=== PATIENT | female | born 1955 | race Caucasian/White ===

== ENCOUNTER → 2020-06-17 09:34 | Outpatient (CLI) | payer MEDICARE, OTHER, SELFPAY ==
--- NOTE | ~2020-06-17 | MM_ITS ---
EXAMINATION: MM screening [facility] BI w kevin HISTORY: Screening mammogram TECHNIQUE: Craniocaudal and mediolateral oblique 3-D tomosynthesis images were obtained and synthetic 2-D images were generated. CAD analysis was submitted and interpreted. COMPARISON: Comparison to multiple prior studies sequentially, with oldest reviewed study dated 01/14. BREAST PARENCHYMAL COMPOSITION: There are scattered areas of fibroglandular density. FINDINGS: There is no evidence of suspicious mass, calcification, or architectural distortion to sugg est malignancy in either breast. There has been no suspicious interval change. IMPRESSION: 1. No mammographic evidence of malignancy. 2. Recommend routine screening mammography in one year. BI-RADS Category 1: Negative Reviewed, dictated and finalized at location A.
== END ==
PROVIDERS: PCP Physician Assistant; Visit Provider Physician Assistant
DX: Z12.31 Encounter for screening mammogram for malignant neoplasm of breast (principal)
CPT/HCPCS: 77063; 77067

== ENCOUNTER → 2022-01-12 11:08 | Outpatient (CLI) | payer MEDICARE, OTHER, SELFPAY ==
--- NOTE | ~2022-01-12 | XR_ITS ---
EXAMINATION: XR lumbar spine 2-3V DATE: 01/12/2022 11:55 INDICATION: Low back pain TECHNIQUE: Anteroposterior and lateral views of the lumbar spine, and cone-down lateral view of the l umbosacral junction were obtained. COMPARISON: None. FINDINGS: There are 9 degrees of lumbar levocurvature. There are 2 mm of anterolisthesis of L3 on L4. Bone alignment is otherwise normal. The vertebral body heights are maintained. There is no fracture. There is moderate to severe loss of intervertebral disc space height at L4-5 and L5-S1 and mild loss of intervertebral disc space height throughout the remainder of the lumbar spine. Small degenerative osteophytes project from the anterior endplates of multiple vertebral bodies. There is moderate face t osteoarthritis of the lower lumbar spine. The bowel gas pattern is normal. IMPRESSION: 1. Moderate lumbar spondylosis without acute findings. Reviewed, dictated and finalized at location A. [employer]NAGER
== END ==
PROVIDERS: PCP Physician Assistant; Visit Provider Physician Assistant
DX: M54.50 Low back pain, unspecified (principal); M47.816 Spondylosis without myelopathy or radiculopathy, lumbar region
CPT/HCPCS: 72100

== ENCOUNTER → 2022-01-14 10:27 | Outpatient (CLI) | payer MEDICARE, OTHER, SELFPAY ==
--- NOTE | ~2022-01-14 | MR_ITS ---
EXAMINATION: MR lumbar spine wo con DATE: 01/14/2022 11:04 INDICATION: Lumbar spondylosis TECHNIQUE: Magnetic resonance imaging (MRI) of the lumbar spine was performed without intravenous con trast. Sequences included sagittal T2-weighted FSE, sagittal T2-weighted FS FSE, sagittal T1-weighted FSE, and axial T2-weighted FSE. COMPARISON: Radiograph dated 01/12/2022 FINDINGS: 10 degrees lumbar levoscoliosis. 2 mm anterolisthesis L3 on L4. Minimal likely physiologic anterior w edging at T11. Small Schmorl's node along the superior endplate of L2. Remaining vertebral body heigh ts are normal. T1 and T2 hyperintense hemangioma at T12. Marrow signal is otherwise normal. Moderate to severe disc height loss at L4-L5 and to 5 S1. Moderate right-sided predominant disc height loss at L3-L4 and L4-L5. The conus medullaris terminates at T12-L1. There is normal signal in the caudal spi nal cord. 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 Paravertebral soft tissue s are unremarkable. The following disc levels are specifically discussed: T12-L1: The disc does not extend beyond the endplate margin. There is mild bilateral facet joint oste oarthritis. There is no neural foraminal stenosis. There is no central canal stenosis. L1-L2: Disc is bulging. There is mild bilateral facet joint osteoarthritis. There is minimal bilatera l neural foraminal stenosis. There is mild central canal stenosis. L2-L3: Disc is bulging. There is moderate bilateral facet joint osteoarthritis. There is mild bilater al, right greater than left, neural foraminal stenosis. There is mild central canal stenosis. L3-L4: Disc is bulging. There is severe bilateral facet joint osteoarthritis. There is mild bilateral neural foraminal stenosis. There is mild central canal stenosis. L4-L5: Disc is bulging with annular fissure. There is moderate bilateral facet joint osteoarthritis. There is moderate left and mild to moderate right neural foraminal stenosis. There is mild central ca nal stenosis. L5-S1: Disc is mildly bulging with annular fissure and small left paracentral disc protrusion. There is mild to moderate bilateral facet joint osteoarthritis. There is mild right and moderate left neura l foraminal stenosis. There is minimal central canal stenosis with mild narrowing of the left lateral recess. IMPRESSION: 1. Mild lumbar levoscoliosis with moderate to severe spondylosis. Reviewed, dictated and finalized at location A. PROCEDURE
== END ==
PROVIDERS: PCP Physician Assistant; Visit Provider Physician Assistant
DX: M47.896 Other spondylosis, lumbar region (principal)
CPT/HCPCS: 72148

== ENCOUNTER → 2022-07-15 10:48 | Outpatient (CLI) | payer MEDICARE, OTHER, SELFPAY ==
--- NOTE | ~2022-07-15 | DEXA_ITS ---
Bone Density Report Name: DAVIE ANAND Age: 66 Sex: Female Ethnicity: White Date of : 1955 Indication: postmenopausal; screening for osteoporosis; Referring Provider: Socorro Siu Study: Bone densitometry was performed. Exam Date: July 15, 2022 Accession number: [id number] Bone Density: Region BMD T-score Z-score Classification AP Spine (L1-L4) 1.129 0.7 2.8 Normal Femoral Neck (Left) 0.809 -0.4 1.4 Normal Total Hip (Left) 0.891 -0.4 1.0 Normal Femoral Neck (Right) 0.720 -1.2 0.6 Osteopenia Total Hip (Right) 0.840 -0.8 0.6 Normal Total Hip Mean 0.866 -0.6 0.8 Normal World Health Organization criteria for BMD impression classify patients as: Normal (T-score at or above -1.0), Osteopenia (T-score between -1.0 and -2.5), or Osteoporosis (T-score at or below -2.5). 10-year Fracture Risk(1): Major Osteoporotic Fracture 9.1% Hip Fracture 1.0% Reported Risk Factors: [place] (), Neck BMD=0.720, BMI=26.8 (1) FRAX(R) Version 3.08. Fracture probability calculated for an untreated patient. Fracture probability may be lower if the patient has received treatment. Previous Exams: Region Exam Age BMD T-score BMD Change BMD Change Date g/cm2 vs Baseline vs Previous AP Spine(L1-L4) 07/15/2022 66 1.129 0.7 0.044* 0.044* 10/25/2014 59 1.084 0.3 Total Hip(Left) 07/15/2022 66 0.891 -0.4 -0.028* -0.028* 10/25/2014 59 0.919 -0.2 Total Hip(Right) 07/15/2022 66 0.840 -0.8 -0.062* -0.062* 10/25/2014 59 0.902 -0.3 *Denotes significance at 95% confidence level, LSC for AP Spine = 0.022 g/cm2, LSC for Total Hip = 0.027 g/cm2 Clinical Information Provided by Patient: Has used the following medications: Vitamin D Patient maximum height was 66.5 Menopause Age: 53 Does not regularly consume dairy products Drinks caffeinated beverages Onset of menses at age 11 Number of children 1 Impression: The patient has low bone mass, based on the Right Femoral Neck T-score. The patient has an estimated ten-year risk of hip fracture of 1% and an estimated ten-year risk of major fracture of 9.1%, based on the WHO FRAX algorithm. The BMD for the Total Hip(Left) decreased, changing by -0.028 since the last DXA exam. The BMD for the Total Hip(Right) decreased, changing by -0.062 since the last DXA exam. Discussion: BONE DENSITY IS LOW AT ONE OR MORE SKELETAL SITES. This patien
--- NOTE | ~2022-07-15 | MM_ITS ---
EXAMINATION: MM screening [facility] w [facility] HISTORY: Screening mammogram TECHNIQUE: Craniocaudal and mediolateral oblique 3-D tomosynthesis images were obtained and synthetic 2-D images were generated. CAD analysis was submitted and interpreted. COMPARISON: 06/17/2020, 01/23/2019, 10/13/2017 bilateral screening mammogram examinations BREAST PARENCHYMAL COMPOSITION: There are scattered areas of fibroglandular density. FINDINGS: There is no evidence of suspicious mass, calcification, or architectural distortion to sugg est malignancy in either breast. There has been no suspicious interval change. IMPRESSION: 1. No mammographic evidence of malignancy. 2. Recommend routine screening mammography in one year. BI-RADS Category 1: Negative Reviewed, dictated and finalized at location A.
== END ==
PROVIDERS: PCP Physician Assistant; Visit Provider Student in an Organized Health Care Education/Training Program
DX: Z12.31 Encounter for screening mammogram for malignant neoplasm of breast (principal); Z78.0 Asymptomatic menopausal state; M85.851 Other specified disorders of bone density and structure, right thigh
CPT/HCPCS: 77063; 77067; 77080

== ENCOUNTER 2024-07-17 10:39 | Outpatient (CLI) | payer MEDICARE, OTHER, SELFPAY ==
--- NOTE | ~2024-07-17 | MM_ITS ---
EXAMINATION: MM screening [facility] w [facility] HISTORY: Screening TECHNIQUE: Craniocaudal and mediolateral oblique 3-D tomosynthesis images were obtained and synthetic 2-D images were generated. CAD analysis was submitted and interpreted. COMPARISON: Comparison to multiple prior studies sequentially, with oldest reviewed study dated 09/28. BREAST PARENCHYMAL COMPOSITION: Not dense: There are scattered areas of fibroglandular density. FINDINGS: There is no evidence of suspicious mass, calcification, or architectural distortion to sugg est malignancy in either breast. There has been no suspicious interval change. IMPRESSION: 1. No mammographic evidence of malignancy. 2. Recommend routine screening mammography in one year. BI-RADS Category 1: Negative Reviewed, dictated and finalized at location B.
== END 2024-07-17 10:40 ==
PROVIDERS: PCP Physician Assistant; Visit Provider Physician Assistant
DX: Z12.31 Encounter for screening mammogram for malignant neoplasm of breast (principal)
CPT/HCPCS: 77063; 77067

== ENCOUNTER 2024-08-21 12:50 | Outpatient (CLI) | payer MEDICARE, OTHER, SELFPAY ==
--- NOTE | ~2024-08-21 | DEXA_ITS ---
Bone Density Report Name: DAVIE ANAND Age: 68 Sex: Female Ethnicity: White Date of : 1955 Indication: postmenopausal; screening for osteoporosis; Referring Provider: UNKNOWN, UNKNOWN Study: Bone densitometry was performed. Exam Date: August 21, 2024 Accession number: [id number] Bone Density: Region BMD T-score Z-score Classification AP Spine(L1-L4) 1.158 1.0 3.2 Normal Femoral Neck (Left) 0.852 0.0 1.9 Normal Total Hip (Left) 0.922 -0.2 1.4 Normal Femoral Neck (Right) 0.706 -1.3 0.6 Osteopenia Total Hip (Right) 0.829 -0.9 0.6 Normal Total Hip Mean 0.875 -0.6 1.0 Normal World Health Organization criteria for BMD impression classify patients as: Normal (T-score at or above -1.0), Osteopenia (T-score between -1.0 and -2.5), or Osteoporosis (T-score at or below -2.5). 10-year Fracture Risk(1): Major Osteoporotic Fracture 9.8% Hip Fracture 1.3% Reported Risk Factors: [place] (), Neck BMD=0.706, BMI=25.9 (1) FRAX(R) Version 3.08. Fracture probability calculated for an untreated patient. Fracture probability may be lower if the patient has received treatment. Clinical Information Provided by Patient: Patient maximum height was 66.5 Does not regularly consume dairy products Drinks caffeinated beverages Onset of menses at age 11 Number of children 1 Impression: The patient has low bone mass, based on the Right Femoral Neck T-score. The patient has an estimated ten-year risk of hip fracture of 1.3% and an estimated ten-year risk of major fracture of 9.8%, based on the WHO FRAX algorithm. Discussion: BONE DENSITY IS LOW AT ONE OR MORE SKELETAL SITES. This patient's lowest T-score is low at one or more skeletal sites. It meets the World Health Organization's (WHO) criteria for ?low bone mass? (T-score between -1.0 and -2.5). The patient's 10-year risk of fracture as calculated by FRAX is less than the threshold where pharmacological therapy is recommended by the National Osteoporosis Foundation (NOF). However, all treatment decisions require clinical judgment and consideration of individual patient factors, including patient preferences, comorbidities, previous drug use, risk factors not captured in the FRAX model (e.g., frailty, falls, vitamin D deficiency, increased bone turnover, interval significant decline in bone density) and possible under or overestimation of fracture risk by FRAX. The patient should follow a healthful lifestyle (good nutrition with adequate calcium and vitamin D, and appropriate weight-bearing exercise). Follow-Up: Consider repeating this study in 2 to 3 years to reassess this patient's status, or sooner if there is some new clinical indication. Reported by: CHAVO on 08/21/2024 1:19:00 PM.
== END 2024-08-21 12:51 | disposition home or self-care (01) ==
LOC: ANHIMG 12:54
PROVIDERS: PCP Physician Assistant
DX: Z78.0 Asymptomatic menopausal state (principal); M85.851 Other specified disorders of bone density and structure, right thigh
CPT/HCPCS: 77080

== ENCOUNTER 2024-09-14 09:48 | Emergency (ER) | payer MEDICARE, OTHER, SELFPAY ==
--- NOTE | ~2024-09-14 | XR_ITS ---
XR knee LT min 4V 09/14/2024 10:44 Indication: Left knee pain Procedure: 3 views left knee Comparison: No prior studies for comparison. Findings: Moderate-severe tricompartment osteoarthritis, most advanced in the lateral compartment. Sm all joint effusion. No acute fracture or traumatic malalignment. Impression: 1: Moderate-severe tricompartment osteoarthritis. Reviewed, dictated and finalized at location B. Impression: 1: Moderate-severe tricompartment osteoarthritis.
[2024-09-14 10:08] VITALS: BP 126/85; PULSE 59; RESP 16; TEMP 36.7; O2SAT 100
--- NOTE | 2024-09-14 10:43 | ED.LOWEXIN ---
HPI - Extremity Injury (Lower) General Chief Complaint: Extremity Injury, Lower Stated Complaint: Left Knee Pain Time Seen by Provider: 09/14/24 10:29 Source: patient and RN notes reviewed Mode of arrival: ambulatory (with walker) Limitations: no limitations History of Present Illness HPI Narrative: Patient presents today complaining of left knee pain. Last night she was letting her dog out and, jammed her knee. Denies numbness or tingling in the leg or foot. She currently rates her pain at rest 3/10, which increases to 8/10 with weight-bearing. She has taken some Aleve with some relief. She has an appointment in 2 weeks with her orthopedic doctor. Related Data Home Medications Medication Instructions Recorded Confirmed levothyroxine 75 mcg capsule 75 mcg PO DAILY 04/06/22 09/14/24 sertraline 100 mg tablet 100 mg PO DAILY 04/06/22 09/14/24 Allergies Allergy/AdvReac Type Severity Reaction Status Date / Time No Known Allergies Allergy Verified 04/06/22 09:21 Review of Systems Review of Systems: CONSTITUTIONAL: Denies body aches, fever, chills, or sweats. EYES: Denies visual changes, redness, or discharge. ENT: Denies rhinorrhea, congestion, sore throat, or otalgia. CARDIOVASCULAR: Denies chest pain, palpitations, or edema. RESPIRATORY: Denies cough or dyspnea. GASTROINTESTINAL: Denies abdominal pain, nausea, vomiting, or diarrhea. GENITOURINARY: Denies dysuria or hematuria. SKIN: Denies rash, itching, or wounds. MUSCULOSKELETAL: Denies back pain, or myalgia.+ left knee pain NEUROLOGIC: Denies headache, numbness, tingling, or weakness. PSYCH: Denies depression or anxiety. [facility] Past Medical History Medical History Depression with anxiety History of herpes simplex infection History of vaginal delivery x1 Hypothyroidism Surgical History Surgical History H/O repair of rotator cuff History of tubal ligation Freedom teeth removed Family History Family History Sibling Family history of malignant neoplasm Mother Liver cancer Sibling Lung cancer Social History Social History Smoking status: Never smoker Alcohol intake: current Substance use: never Comments At time of signature, I have reviewed and agree with nursing past medical, surgical, social and family history unless otherwise noted. Please see nursing chart for further information. There is no relevant family history pertinent to the presenting complaint Exam Narrative: GENERAL: Well-appearing, well-nourished, and in no acute distress. HEAD: Normocephalic, atraumatic. EYES: EOMI. No redness or drainage. Conjunctivae normal. ENT: Mucous membranes pink and moist. NECK: Normal AROM. CHEST: No respiratory distress. EXTREMITIES: Left knee: Mild edema about the knee. Patient localizes pain laterally that seems to be tender only with deep palpation. Distal sensation intact. Capillary refill normal. Full AROM with mild pain with flexion. SKIN: Warm, dry, no rash. Capillary refill normal. Normal skin turgor. NEURO: No focal deficits. Alert and oriented x3. Gait steady. PSYCH: Normal affect. No signs of depression or anxiety. Course Course Level of Care: Express Care Visit Vital Signs Vital signs: Vital Signs Temperature 98.1 F 09/14/24 10:08 Pulse Rate 59 L 09/14/24 10:08 Respiratory Rate 16 09/14/24 10:08 Blood Pressure 126/85 09/14/24 10:08 Pulse Oximetry 100 09/14/24 10:08 Temperature 98.1 F 09/14/24 10:08 Pulse Rate 59 L 09/14/24 10:08 Respiratory Rate 16 09/14/24 10:08 Blood Pressure 126/85 09/14/24 10:08 Pulse Oximetry 100 09/14/24 10:08 Reviewed MDM - Extremity Injury (Lower) MDM Narrative Medical decision making narra
== END 2024-09-14 11:06 | disposition home or self-care (01) ==
PROVIDERS: Emergency Provider Nurse Practitioner; PCP Physician Assistant
DX: S89.92XA Unspecified injury of left lower leg, initial encounter (principal); X58.XXXA Exposure to other specified factors, initial encounter; F41.8 Other specified anxiety disorders; E03.9 Hypothyroidism, unspecified
CPT/HCPCS: 73564; 99213; G0463